=== PATIENT | female | born 1985 | race African-American/Black ===

== ENCOUNTER → 2023-05-23 13:04 | Outpatient (BNVA) | payer OTHER, SELFPAY | PROVIDERS: Visit Provider Physician Assistant Surgical ==

== ENCOUNTER 2023-06-12 13:21 | Outpatient (AMB) | payer OTHER, SELFPAY ==
--- OUTSIDE RECORDS SUMMARY | 2023-06-12 13:23 | XMS_ITS | Continuity of Care Document ---
Author Name Unknown Organization [facility] Address [address] [place] [address]- Care Team Providers Care Precision Jig Grinder Name Role Phone Romelia BENITEZ, Rebekah Kate Primary Care Physi nanda Encounter [facility] Date(s): 07/26/21 - 08/25/21 [facility] [address] [place], [place] [address] Attending Physician: Evelin Carter Admitting Physician: AdmtrEvelin Referring Physician: AdmtrEvelin Allergies, Adverse Reactions, Alerts Substance Reaction Severity Status penicillin C/O: a swelling Active Immunizations Given and Recorded Vaccine Date Status Refusal Reason Hepatitis A Adult Vaccine 1 02/15/10 Given 1Admin Note: hep A #1 Medications albuterol 90 mcg/inh inhalation powder 2 puffs, Inhalation, Every 4 hours, PRN as needed, prn for cough or wheezing, # 1 each, 1 Refills, Maintenance, 11/24/18 14:56:29 EST, Powder, 2 puffs Inhalation Every 4 hours,PRN:as needed,Instr:prnfor cough or wheezing Start Date: 11/24/18 Status: Ordered Problem List Condition Effective Dates Status Health Status Inform ant Morbid obesity with BMI of 4 0.0-44.9, adult(Confirmed) Active Preg., other complications NOS(Confirmed) Active Social History Social History Type Response Smoking Status Never smoker entered on: 09/16/16 Sex
--- OUTSIDE RECORDS SUMMARY | 2023-06-12 13:23 | XMS_ITS | Continuity of Care Document ---
Author Name Unknown Organization [facility] Address [address] [place] [address]- Care Team Providers Care Revenue Tax Specialist Name Role Phone Rebekah León CNM Primary Care Physi nanda Encounter [facility] [place] [place] Date(s): 07/26/21 - 08/02/21 [facility] [address] [place], [place] [address] Attending Physician: Valeria Dee MD Referring Physician: Rebekah León CNM Allergies, Adverse Reactions, Alerts Substance Reaction Severity [...]
--- OUTSIDE RECORDS SUMMARY | 2023-06-12 13:23 | XMS_ITS | Continuity of Care Document ---
Author Name Unknown Organization [facility] Address [address] [place] [address]- Care Team Providers Care Automatic Transmission Mechanic Name Role Phone Rebekah León CNM Primary Care Physi nanda Encounter [facility] [place] Date(s): 08/21/22 - 09/20/22 [facility] [address] [place], [place] [address] Attending Physician: Evelin Carter Admitting Physician: AdmEvelin renner Referring Physician: AdmtrEvelin Allergies, Adverse Reactions, Alerts [...] Date: 11/24/18 Status: Ordered Problem List Condition Confirmation Course Effective Dates Status H ealth Status Informant Morbid obesity with BMI of 40.0-44.9, adult Confirmed Active Preg., other complications NOS Confirmed Active Social History Social History Type Response Smoking Status Never smoker entered on: 09/16/16 Sex EKG study * Event Display: EKG Authored Date: Patient Care team information Care Team Personnel Name: Rebekah León CNM Position: S Insurance Marketing Rep Member Role: PCP Address: Address: [address] [place] [address] [place] [address]- Care Team Related Persons Name: MELINDA ALLENETTA Address: [address] [place] [address]
--- OUTSIDE RECORDS SUMMARY | 2023-06-12 13:23 | XMS_ITS | Continuity of Care Document ---
Author Name Unknown Organization [facility] Address [address] [place] [address]- Care Team Providers Care Nurse Plastics Name Role Phone Romelia BENITEZ, Rebekah Kate Primary Care Physi nanda Encounter [facility] [place] Date(s): 07/26/21 - 08/25/21 [facility] [address] [place], [place] [address] Attending Physician: Admtr, Evelin Admitting Physician: Admtr, Evelin Referring Physician: Admtr, Ar8 Allergies, Adverse Reactions, Alerts Substance Reaction Severity [...]
--- OUTSIDE RECORDS SUMMARY | 2023-06-12 13:23 | XMS_ITS | Continuity of Care Document ---
Author Name Unknown Organization [facility] Address [address] [place] [address]- Care Team Providers Care Box Machine Operator Name Role Phone Rebekah León CNM Primary Care Physi nanda Encounter [facility] [place] Date(s): 07/26/21 - 08/25/21 [facility] [address] [place], [place] [address] Attending Physician: Valeria Dee MD Referring [...]
--- NOTE | 2023-06-12 15:16 | A.OFFVIS_ITS ---
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 HPI Details Start time: 3.07pm, End time: 4.07pm I spent 55 minutes speaking with the patient on the phone plus an additional 5 minutes reviewing and updating records for a total of 60 minutes HPI Comments History of Present Illness Details Previous weight loss efforts: [employer], That works, calorie counting Wakes up: 6am, Sleeps: 10.30pm Breakfast: 8.30am (sausage,eggs) Lunch: 2pm (fast food, or leftovers) Dinner: 6pm (rice, potatoes, chicken, pork chops, corn) Snacks: 4pm (chips, candy bar) Exercise: walking Fluids: coffee (1 cup/day with cream and sugar), tea: none, soda: regular Sprite: 1/wk, juice: orange juice 1/day, ETOH: <1/month PFSH Medical History (Updated 06/12/23 @ 15:25 by Heladio Rajput MD) Asthma Depression Morbid obesity Surgical History (Updated 05/23/23 @ 13:15 by ESTUARDO Torres) Hx of tubal ligation Family History (Updated 05/23/23 @ 13:16 by ESTUARDO Torres) Mother Hypertension Fibromyalgia Rheumatoid arthritis Sleep apnea Father Epilepsy Sister Cancer Leukemia Son No problems noted. Son No problems noted. Social History (Updated 05/23/23 @ 13:14 by ESTUARDO Torres) Alcohol intake: current Alcohol intake frequency: holidays/special occasions only Patient Tobacco Use Status: Never used Tobacco Assessment & Plan Assessment & Plan (1) Morbid obesity: Code(s): E66.01 - Morbid (severe) obesity due to excess calories Plan: 1. Plan for lap sleeve gastrectomy. If diaphragmatic or ventral hernias are present at time of surgery, these will be repaired laparoscopically as well. Risks and complications were discussed in detail including possible conversion to an open procedure, anastomotic leak, bleeding requiring transfusion, small bowel obstruction, , DVT and pulmonary embolism, cardiac, or pulmonary complications, as stock car driver complications such as anastomotic ulcer, insufficient weight loss and vitamin deficiencies. I emphasized the importance of close follow-up, adherence to instructions and good communication. 2. Nutritional counseling. Start with 2 Isopure Infusions protein (buy at [employer], [employer]) shakes (HALF scoop in 8oz water each) at 7am-9am and 10am-12pm, 2 protein bars (Zone Perfect protein bars, buy at [employer], [employer], [employer], or [employer]) at 1pm-3pm and 4pm-6pm, dinner at 7pm (8 forks of protein and 8 forks of salad/vegetables) and HALF protein bar (if you feel hungry) at 9pm-10pm. Meal to include lean meat (beef, fish, pork, turkey, chicken), or sami yogurt, or egg whites, or beans with a salad with olive oil and fruits (berries, pears, apples, kiwi). Avoid salt, breads, potatoes, rice, pasta, desserts. 3. Each shake would be drunk slowly, like coffee in a period of 2 hours. 4. Cut each bar in 4 pieces and eat each piece in 30min to make each bar last 2 hours. 5. I emphasized the importance of measuring accurately the food portion and measure it when serving the food in plate 6. The meal portions include 8 full-size forks of meat and 8 full-size forks of salad. You always eat the meat portion but you can replace up to 4 forks for salad/vegetables with rice, potatoes or pasta, or a fruit if you like. The less you do it the better weight loss will be. 7. One full-size fork is what it can be scooped on the fork without falling aside and not what can be bit with the fork. Use regular forks like those you find in a typical restaurant. 8. Please send me weight measurements as soon as possible and then once a week. Always include your diet and exercise plan. Alternatively come weekly at the office for weight checks and send me the measurements. 9. Start walking outside daily, tracking calories with a goal of 300 calories per day, daily. Goal is to burn 2000 calories per week on active walking. Goal is to burn 2000 calories per week on exercise, which means either 300 calories daily, or 400 calories 5 days per week, or 500 calories 4 days per week, or 650 calories 3 days per week. 10. Alternatively purchase a stationary bike, elliptical or treadmill at home that can track calories. Let me know if you do so I can give you an exercise plan. 11. It is important of avoiding and for at least 18 months postoperatively and has been discussed at the infosession. 12. Goal is to lose at least 1.5-2lbs per week 13. Goal to lose 10% of your weight before surgery, which is about 24lbs. Ultimate weight goal: 219lbs before surgery 14. Please follow the diet plan exactly without any change. If you don't like something about the plan or you feel hungry you need to communicate with me so I can help you revise the plan. You should not change the plan yourself. (2) Depression: Code(s): F32.A - Depression, unspecified (3) Asthma: Code(s): J45.909 - Unspecified asthma, uncomplicated (4) Sleep apnea with use of continuous positive airway pressure (CPAP): Code(s): G47.30 - Sleep apnea, unspecified Orders: Orders Vitamin B12 and Folate Today E66.01 - Morbid (severe) obesity due to excess calories, F32.A - Depression, unspecified, G47.30 - Sleep apnea, unspecified, J45.909 - Unspecified asthma, uncomplicated Comprehensive Met. Panel Today E66.01 - Morbid (severe) obesity due to excess calories, F32.A - Depression, unspecified, G47.30 - Sleep apnea, unspecified, J45.909 - Unspecified asthma, uncomplicated C Reactive Protein Today E66.01 - Morbid (severe) obesity due to excess calories, F32.A - Depression, unspecified, G47.30 - Sleep apnea, unspecified, J45.909 - Unspecified asthma, uncomplicated Ferritin Today E66.01 - Morbid (severe) obesity due to excess calories, F32.A - Depression, unspecified, G47.30 - Sleep apnea, unspecified, J45.909 - Unspecified asthma, uncomplicated Hemoglobin A1c Today E66.01 - Morbid (severe) obesity due to excess calories, F32.A - Depression, unspecified, G47.30 - Sleep apnea, unspecified, J45.909 - Unspecified asthma, uncomplicated Insulin Today E66.01 - Morbid (severe) obesity due to excess calories, F32.A - Depression, unspecified, G47.30 - Sleep apnea, unspecified, J45.909 - Unspecified asthma, uncomplicated IRON PROFILE Today E66.01 - Morbid (severe) obesity due to excess calories, F32.A - Depression, unspecified, G47.30 - Sleep apnea, unspecified, J45.909 - Unspecified asthma, uncomplicated Lipid Panel Today E66.01 - Morbid (severe) obesity due to excess calories, F32.A - Depression, unspecified, G47.30 - Sleep apnea, unspecified, J45.909 - Unspecified asthma, uncomplicated PTHI Today E66.01 - Morbid (severe) obesity due to excess calories, F32.A - Depression, unspecified, G47.30 - Sleep apnea, unspecified, J45.909 - Unspecified asthma, uncomplicated TSH reflex Free T4 Today E66.01 - Morbid (severe) obesity due to excess calories, F32.A - Depression, unspecified, G47.30 - Sleep apnea, unspecified, J45.909 - Unspecified asthma, uncomplicated Vitamin A Today E66.01 - Morbid (severe) obesity due to excess calories, F32.A - Depression, unspecified, G47.30 - Sleep apnea, unspecified, J45.909 - Unspecified asthma, uncomplicated Vitamin B1 Today E66.01 - Morbid (severe) obesity due to excess calories, F32.A - Depression, unspecified, G47.30 - Sleep apnea, unspecified, J45.909 - Unspecified asthma, uncomplicated Vitamin D 25-OH Total Today E66.01 - Morbid (severe) obesity due to excess calories, F32.A - Depression, unspecified, G47.30 - Sleep apnea, unspecified, J45.909 - Unspecified asthma, uncomplicated Zinc Today E66.01 - Morbid (severe) obesity due to excess calories, F32.A - Depression, unspecified, G47.30 - Sleep apnea, unspecified, J45.909 - Uns pecified asthma, uncomplicated ECG 12 lead EKG Today E66.01 - Morbid (severe) obesity due to excess calories, F32.A - Depression, unspecified, G47.30 - Sleep apnea, unspecified, J45.909 - Unspecified asthma, uncomplicated FL upper GI w air Today E66.01 - Morbid (severe) obesity due to excess calories, F32.A - Depression, unspecified, G47.30 - Sleep apnea, unspecified, J45.909 - Unspecified asthma, uncomplicated Complete Blood Count Auto Diff Today E66.01 - Morbid (severe) obesity due to excess calories, F32.A - Depression, unspecified, G47.30 - Sleep apnea, unspecified, J45.909 - Unspecified asthma, uncomplicated H Pylori Breath Test Today E66.01 - Morbid (severe) obesity due to excess calories, F32.A - Depression, unspecified, G47.30 - Sleep apnea, unspecified, J45.909 - Unspecified asthma, uncomplicated US abdomen comp w elastography Today E66.01 - Morbid (severe) obesity due to excess calories, F32.A - Depression, unspecified, G47.30 - Sleep apnea, unspecified, J45.909 - Unspecified asthma, uncomplicated XR chest 2V Today E66.01 - Morbid (severe) obesity due to excess calories, F32.A - Depression, unspecified, G47.30 - Sleep apnea, unspecified, J45.909 - Unspecified asthma, uncomplicated Referrals Behavioral Health Referral E66.01 - Morbid (severe) obesity due to excess calories, F32.A - Depression, unspecified, G47.30 - Sleep apnea, unspecified, J45.909 - Unspecified asthma, uncomplicated Nutrition/Dietitian Referral E66.01 - Morbid (severe) obesity due to excess calories, F32.A - Depression, unspecified, G47.30 - Sleep apnea, unspecified, J45.909 - Unspecified asthma, uncomplicated Telehealth Telehealth Location of provider rendering services: practice address Location of patient: address on file Patient Identification confirmed using: Name, : Yes Telehealth method: voice only Patient verbally consented to treatment: Yes Patient verbally consented to billing insurance company: Yes Patient informed of any privacy concerns related to visit: Yes Minutes spent on Phone/Video with Pt.: 60 Coding Level of Care Code Tele New Pt Level 5 (76698) Diagnoses Morbid obesity E66.01 Depression F32.A Asthma J45.909 Sleep apnea with use of continuous positive airway pressure (CPAP) G47.30 Time Spent (min) 60
[2023-06-12 15:28] VITALS: BMI 44.4
== END 2023-06-12 16:06 | disposition home or self-care (01) ==
LOC: HO.HBS 13:21
PROVIDERS: Visit Provider Surgery
DX: E66.01 Morbid (severe) obesity due to excess calories (principal); Z68.42 Body mass index [BMI] 45.0-49.9, adult
CPT/HCPCS: 99205

== ENCOUNTER → 2023-06-12 13:21 | Outpatient (BNVA) | payer OTHER, SELFPAY | PROVIDERS: Visit Provider Surgery ==

== ENCOUNTER 2023-06-23 08:55 | Outpatient (REF) | payer OTHER, SELFPAY ==
--- NOTE | ~2023-06-23 | XR_ITS ---
EXAMINATION: XR CHEST CLINICAL INFORMATION: Morbid severe obesity due to excess calories COMPARISON: None available. TECHNIQUE: 2 views of the chest were obtained. FINDINGS: Lung volumes are low, limiting evaluation of the lungs and cardiomediastinal silhouette. Cardiac size within normal limits allowing for low lung volumes. No pleural effusion. No focal consolidation to suggest pneumonia. XR/XR chest 2V IMPRESSION: Low lung volumes. No evidence of pneumonia.
[2023-06-23 10:06] LABS: MANUAL DIFF FLAG NO
[2023-06-23 10:15] LABS: Basophils Absolute Auto 0.1 X10*3/uL (0.0-0.2); Basophils Percent Auto 0.8 % (0-2); Eosinophils Absolute Auto 0.1 X10*3/uL (0.0-0.4); Eosinophils Percent Auto 1.3 % (0-4); Hematocrit 39.7 % (37.0-47.0); Hemoglobin 12.8 g/dl (12.0-16.0); Imm Gran Abs Auto 0.02 X10*3/uL (0.00-0.03); Imm Gran Pct Auto 0.3 % (0.0-0.4); Lymphocytes Absolute Auto 3.6 X10*3/uL (1.2-4.9); Lymphocytes Percent Auto 47.4 % (20-40); Mean Corpuscular HGB Conc 32.2 g/dl (31.0-35.0); Mean Corpuscular Hemoglobin 25.9 pg (27.0-33.0); Mean Corpuscular Volume 80.2 fL (80.0-98.0); Mean Platelet Volume 10.1 fL (9.4-12.3); Monocytes Absolute Auto 0.4 X10*3/uL (0.1-1.2); Monocytes Percent Auto 5.2 % (2-11); Neutrophils Absolute Auto 3.4 x10*3/uL (2.0-8.3); Platelet Count 397 X10*3/uL (160-400); Red Blood Count 4.95 X10*6/uL (4.20-5.50); Red Cell Distribution Width 14.8 % (11.0-16.0); White Blood Count 7.5 X10*3/uL (4.8-10.8)
[2023-06-23 10:49] LABS: Alanine Aminotransferase 17 U/L (0-31); Albumin Level 4.3 g/dL (3.5-5.0); Alkaline Phosphatase 47 U/L (39-117); Anion Gap 12 (12-20); Aspartate Amino Transferase 16 U/L (5-31); Bilirubin Total 0.6 mg/dL (0.0-1.0); Blood Urea Nitrogen 10 mg/dL (9-16); Calcium 9.4 mg/dL (8.4-10.2); Carbon Dioxide 25 mmol/L (22-29); Chloride 106 mmol/L (96-108); Cholesterol 192 mg/dL (<200); Estimated Glomerular Filt Rate > 60; Glucose Random 126 mg/dL (60-115); HDL Cholesterol 41 mg/dL (>40); Iron 50 mcg/dL (30-160); LDL Cholesterol Calculated 128 mg/dL (<100); Percent Iron Saturation 17 % (15-50); Potassium 3.9 mmol/L (3.3-5.1); Sodium 139 mmol/L (135-145); Total Iron Binding Capacity 293 mcg/dL (228-428); Total Protein 7.6 g/dL (6.5-8.0); Triglycerides 118 mg/dL (<150); Unsaturated Iron Binding 243 ug/dL
[2023-06-23 10:50] LABS: Estimated Average Glucose 131 mg/dL; Hemoglobin A1C 150.8074 umol/L; Hemoglobin A1c % 6.2 % (<6.0)
[2023-06-23 11:04] LABS: Ferritin 79 ng/mL (10-122); Insulin 24 uU/mL (2-29); TSH reflex Free T4 1.21 uIU/mL (0.32-4.0); Vitamin D 25-OH Total 19.9 ng/mL (>30)
[2023-06-23 11:16] LABS: Folate 6.5 ng/mL (> or = 4.0); Vitamin B12 414 pg/mL (200-900)
[2023-06-24 14:13] LABS: Calcium (PTHI) 9.3 mg/dL (8.6-10.2); PTHI 87 pg/mL (16-77)
[2023-06-26 12:54] LABS: Zinc 75 mcg/dL (60-130)
[2023-06-26 14:36] LABS: H Pylori Breath Test Negative (Negative)
[2023-06-27 02:44] LABS: Vitamin A 41 mcg/dL (38-98)
[2023-06-27 13:17] LABS: Vitamin B1 <6 nmol/L (8-30)
== END 2023-06-23 08:56 | disposition home or self-care (01) ==
LOC: HO.LAB 08:55
PROVIDERS: PCP Internal Medicine; Visit Provider Surgery
DX: E66.01 Morbid (severe) obesity due to excess calories (principal); F32.A Depression, unspecified; J45.909 Unspecified asthma, uncomplicated; G47.30 Sleep apnea, unspecified
CPT/HCPCS: 36415; 71046; 80053; 80061; 82306; 82607; 82728; 82746; 83013; 83036; 83525; 83540; 83970; 84425; 84443; 84590; 84630; 85025; 86140

== ENCOUNTER 2023-08-15 07:39 | Outpatient (AMB) | payer OTHER, SELFPAY ==
--- NOTE | 2023-08-15 08:23 | A.OFFVIS_ITS ---
Intake VS Expanded 08/15/23 08:27 Height 5 ft 2 in Weight 240 lb 8 oz BMI 44.0 Body Fat % 58.6 Body Fat Mass 141.1 Fat Free Mass 99.6 Visceral Fat Rating 24 Body Water % 28.4 Body Water Mass 68.3 Basal Metabolic Rate/Score 1,352 Intake Visit Reasons: TV Follow Up SWL Allergies Penicillins Allergy (Mild, Verified 06/12/23 15:16) Hives HPI TV Follow Up SWL HPI Details Start time: 8.00am, End time: 8.32am ?I spent 27 minutes speaking with the patient on the phone plus an additional 5 minutes reviewing and updating records for a total of 32 minutes HPI Comments History of Present Illness Details Has purchased a stair stepper and has acquired the appropriate protein shakes and bars and she is ready to begin the nutritional and exercise plan I gave her. [facility] Medical History (Updated 08/12/23 @ 16:41 by Heladio Rajput MD) Asthma Depression Morbid obesity Surgical History (Updated 05/23/23 @ 13:15 by ESTUARDO Torres) Hx of tubal ligation Family History (Updated 05/23/23 @ 13:16 by ESTUARDO Torres) Mother Hypertension Fibromyalgia Rheumatoid arthritis Sleep apnea Father Epilepsy Sister Cancer Leukemia Son No problems noted. Son No problems noted. Social History (Updated 05/23/23 @ 13:14 by ESTUARDO Torres) Alcohol intake: current Alcohol intake frequency: holidays/special occasions only Patient Tobacco Use Status: Never used Tobacco Assessment & Plan Assessment & Plan (1) Morbid obesity: Code(s): E66.01 - Morbid (severe) obesity due to excess calories Plan: 1. Plan for lap sleeve gastrectomy. If diaphragmatic or ventral hernias are present at time of surgery, these will be repaired laparoscopically as well. Risks and complications were discussed in detail including possible conversion to an open procedure, anastomotic leak, bleeding requiring transfusion, small bowel obstruction, , DVT and pulmonary embolism, cardiac, or pulmonary complications, as buttermaker continuous churn complications such as anastomotic ulcer, insufficient weight loss and vitamin deficiencies. I emphasized the importance of close follow-up, adherence to instructions and good communication. 2. Nutritional counseling. Start with 2 Isopure Infusions protein (buy at [employer]) shakes (HALF scoop in 8oz water each) at 7am-9am and 10am-12pm, 2 protein bars (Zone Perfect protein bars, buy at [employer], [employer], [employer], or [employer]) at 1pm-3pm and 4pm-6pm, dinner at 7pm (8 forks of protein and 8 forks of salad/vegetables) and HALF protein bar (if you feel hungry) at 9pm-10pm. Meal to include lean meat (beef, fish, pork, turkey, chicken), or swiss yogurt, or egg whites, or beans with a salad with olive oil and fruits (berries, pears, apples, kiwi). Avoid salt, breads, potatoes, rice, pasta, desserts. 3. Each shake would be drunk slowly, like coffee in a period of 2 hours. 4. Cut each bar in 4 pieces and eat each piece in 30min to make each bar last 2 hours. 5. I emphasized the importance of measuring accurately the food portion and measure it when serving the food in plate 6. The meal portions include 8 full-size forks of meat and 8 full-size forks of salad. You always eat the meat portion but you can replace up to 4 forks for salad/vegetables with rice, potatoes or pasta, or a fruit if you like. The less you do it the better weight loss will be. 7. One full-size fork is what it can be scooped on the fork without falling aside and not what can be bit with the fork. Use regular forks like those you find in a typical restaurant. 8. Please send me weight measurements as soon as possible and then once a week. Always include your diet and exercise plan. Alternatively come weekly at the office for weight checks and send me the measurements. 9. Start the stair stepper doing 300 calories per day daily. You can do all of them together or split them to two sessions of 150 calories each. Goal is to burn 2000 calories per week on the stair stepper. 10. It is important of avoiding and for at least 18 months postoperatively and has been discussed at the infosession. 11. Goal is to lose at least 1.5-2lbs per week 12. Goal to lose 10% of your weight before surgery, which is about 24lbs. Ultimate weight goal: 219lbs before surgery 13. Please follow the diet plan exactly without any change. If you don't like something about the plan or you feel hungry you need to communicate with me so I can help you revise the plan. You should not change the plan yourself. (2) Asthma: Code(s): J45.909 - Unspecified asthma, uncomplicated (3) Sleep apnea with use of continuous positive airway pressure (CPAP): Code(s): G47.30 - Sleep apnea, unspecified Telehealth Telehealth Location of provider rendering services: practice address Location of patient: address on file Patient Identification confirmed using: Name, : Yes Telehealth method: voice only Patient verbally consented to treatment: Yes Patient verbally consented to billing insurance company: Yes Patient informed of any privacy concerns related to visit: Yes Minutes spent on Phone/Video with Pt.: 32 Coding Level of Care Code Tele Est Pt Level 4 (62288) Diagnoses Morbid obesity E66.01 Asthma J45.909 Sleep apnea with use of continuous positive airway pressure (CPAP) G47.30 Time Spent (min) 32
[2023-08-15 08:27] VITALS: BMI 44.0
== END 2023-08-15 08:33 | disposition home or self-care (01) ==
LOC: HO.HBS 07:39
PROVIDERS: PCP Internal Medicine; Visit Provider Surgery
DX: E66.01 Morbid (severe) obesity due to excess calories (principal); Z68.41 Body mass index [BMI] 40.0-44.9, adult; G47.30 Sleep apnea, unspecified
CPT/HCPCS: 99214

== ENCOUNTER → 2023-08-15 07:39 | Outpatient (BNVA) | payer OTHER, SELFPAY | PROVIDERS: PCP Internal Medicine; Visit Provider Surgery ==

== ENCOUNTER → 2023-09-05 08:19 | Outpatient (BNVA) | payer OTHER, SELFPAY | PROVIDERS: PCP Internal Medicine; Visit Provider Dietitian, Registered | DX: E66.01 Morbid (severe) obesity due to excess calories (principal); Z71.3 Dietary counseling and surveillance | CPT/HCPCS: 97802 ==

== ENCOUNTER → 2023-09-05 13:18 | Outpatient (REF) | payer OTHER, SELFPAY ==
--- NOTE | 2023-09-05 13:21 | ECG_ITS ---
Test Reason : e66.01 Blood Pressure : / mmHG Vent. Rate : 073 BPM Atrial Rate : 073 BPM P-R Int : 140 ms QRS Dur : 080 ms QT Int : 380 ms P-R-T Axes : 056 007 012 degrees QTc Int : 418 ms Normal sinus rhythm Normal ECG No previous ECGs available Referred By: Heladio Rajput Electronically Signed By:JOHN MANCIA MD
== END ==
LOC: HO.CARD 13:18
PROVIDERS: PCP Internal Medicine; Visit Provider Surgery
DX: E66.01 Morbid (severe) obesity due to excess calories (principal); F32.A Depression, unspecified; J45.909 Unspecified asthma, uncomplicated; G47.30 Sleep apnea, unspecified
CPT/HCPCS: 93005

== ENCOUNTER 2023-09-08 07:54 | Outpatient (AMB) | payer OTHER, SELFPAY ==
--- NOTE | 2023-09-08 08:06 | A.OFFVIS_ITS ---
Intake VS Expanded 09/08/23 08:12 Height 5 ft 2 in Weight 234 lb 6 oz BMI 42.9 Body Fat % 56.8 Body Fat Mass 133.2 Fat Free Mass 101.4 Visceral Fat Rating 24 Body Water % 29.6 Body Water Mass 69.4 Basal Metabolic Rate/Score 1,363 Intake Visit Reasons: TV Follow Up SWL Allergies Penicillins Allergy (Mild, Verified 06/12/23 15:16) Hives HPI TV Follow Up SWL HPI Details Start time: 8.00am, End time: 8.20am ?I spent 15 minutes speaking with the patient on the phone plus an additional 5 minutes reviewing and updating records for a total of 20 minutes HPI Comments History of Present Illness Details Overall weight loss: 8.4lbs, 3.46% TBWL Is doing 2 Isopure Infusions protein shakes (1/2 scoop in water), 2 Zone Perfect protein bars and one meal (8 forks of protein and 8 forks of salad or vegetables) Exercise: is doing stair stepper for 300 calories daily PFSH Medical History (Updated 08/12/23 @ 16:41 by Heladio Rajput MD) Asthma Depression Morbid obesity Surgical History (Updated 05/23/23 @ 13:15 by ESTUARDO Torres) Hx of tubal ligation Family History (Updated 05/23/23 @ 13:16 by ESTUARDO Torres) Mother Hypertension Fibromyalgia Rheumatoid arthritis Sleep apnea Father Epilepsy Sister Cancer Leukemia Son No problems noted. Son No problems noted. Social History (Updated 05/23/23 @ 13:14 by ESTUARDO Torres) Alcohol intake: current Alcohol intake frequency: holidays/special occasions only Patient Tobacco Use Status: Never used Tobacco Assessment & Plan Assessment & Plan (1) Morbid obesity: Code(s): E66.01 - Morbid (severe) obesity due to excess calories Plan: 1. Plan for lap sleeve gastrectomy including upper GI endoscopy. All tests has been completed and reviewed and the patient is cleared for the surgery. ?If diaphragmatic or ventral hernias are present at time of surgery, these will be repaired laparoscopically as well. Risks and complications were discussed in detail including possible conversion to an open procedure, anastomotic leak, bleeding requiring transfusion, small bowel obstruction, , DVT and pulmonary embolism, cardiac, or pulmonary complications, as superintendent container terminal complications such as anastomotic ulcer, insufficient weight loss and vitamin deficiencies. I emphasized the importance of close follow-up, adherence to instructions and good communication. So far she has proven to be an excellent communicator and very compliant with all our directions accomplishing a great weight loss. I believe that she is an excellent candidate and she is ready. 2. Continue same nutritional plan for 2 Isopure Infusions protein shakes (1/2 scoop in water), 2 Zone Perfect protein bars and one meal (8 forks of protein and 8 forks of salad or vegetables) 3. Continue stair stepper for 300 calories daily 4. Continue to send measurements weekly on Tuesdays Telehealth Telehealth Location of provider rendering services: practice address Location of patient: address on file Patient Identification confirmed using: Name, : Yes Telehealth method: voice only Patient verbally consented to treatment: Yes Patient verbally consented to billing insurance company: Yes Patient informed of any privacy concerns related to visit: Yes Minutes spent on Phone/Video with Pt.: 20 Coding Level of Care Code Tele Est Pt Level 3 (84336) Diagnoses Morbid obesity E66.01 Time Spent (min) 20
[2023-09-08 08:12] VITALS: BMI 42.9
== END 2023-09-08 08:18 | disposition home or self-care (01) ==
LOC: HO.HBS 07:54
PROVIDERS: PCP Internal Medicine; Visit Provider Surgery
DX: E66.01 Morbid (severe) obesity due to excess calories (principal)
CPT/HCPCS: 99213

== ENCOUNTER → 2023-09-08 07:54 | Outpatient (BNVA) | payer OTHER, SELFPAY | PROVIDERS: PCP Internal Medicine; Visit Provider Surgery ==

== ENCOUNTER 2023-09-17 08:21 | Outpatient (AMB) | payer OTHER, SELFPAY ==
--- NOTE | 2023-09-17 08:12 | MHC.WMTHER ---
Intake Intake Visit Reasons: VIDEO BH Intake Allergies Penicillins Allergy (Mild, Verified 06/12/23 15:16) Hives [facility] Medical History (Updated 08/12/23 @ 16:41 by Heladio Rajput MD) Asthma Depression Morbid obesity Surgical History (Updated 05/23/23 @ 13:15 by ESTUARDO Torres) Hx of tubal ligation Family History (Updated 05/23/23 @ 13:16 by ESTUARDO Torres) Mother Hypertension Fibromyalgia Rheumatoid arthritis Sleep apnea Father Epilepsy Sister Cancer Leukemia Son No problems noted. Son No problems noted. Social History (Updated 05/23/23 @ 13:14 by ESTUARDO Torres) Alcohol intake: current Alcohol intake frequency: holidays/special occasions only Patient Tobacco Use Status: Never used Tobacco Behavioral Health Assessment Weight Management Therapy Therapy Notes Details Pt is a 38 years old female, who presents for initial behavioral health assessment as part of surgical weight-loss program. PT reported been in counseling before as she was adjusting to life after divorce and to navigate parenting, however she is not currently in counseling. She denied any past/recent hospitalization/crisis for behavioral health. Denies any safety concerns around SI and/or self-other harm, also there is no history of substance use reported. There is also no evidence for current stress/emotional-eating, and scores from BES suggest minimal risk for binge eating behavior. PHQ- scores also showed no active symptoms/concerns with depression. Mental status exam is withing normal limits, suggesting person's functioning is not impaired. At this time patient is cleared from the behavioral health standpoint. Presenting Concerns Referral Source WMP Provider. PT sees Dr. Pagan Reason for referral Completion of behavioral health assessment as part of process for weight-loss surgery. Precipitating Event Obesity and medical issues. Living Situation Current Living Situation Rent At risk of losing current housing? No Satisfied with current living situation? Yes Comments PT lives with her 2 sons (16 and 12). Food/Weight/Diet Expectations of change PT wants to be healthy, being more active and coming out of the CPAP machine. Initial goal to lose 10% of her weight before surgery, which is about 24lbs. Ultimate weight goal: 219lbs before surgery. History/Relationship with food Dealt with stress-eating when went trough separation, but is not engaging on emotional eating anymore. She uses distracting activities to manage cravings. Before starting program B: Neil or a homemade breakfast sandwich /wrap with eggs, sauce, cheese. L: Eating out depending on what was on the area. Chicken/rice from a or [employer] restaurant, or a chalupa from [employer]. D: Cooking at home but sometimes eating out. Example: chicken/rice or pasta. History/Relationship with weight Struggles started after having second son 12 years ago. Before getting with 2nd son she was around 180Lbs. In the past 10 years lowest weight has been 195-200Lbs, and highest 245Lbs couple months ago. History/Relationship with dieting Herbalife for about a year and lost 15Lbs reports it was a struggle to keep it down. [employer] (vitamins/supplements), caloric deficit, intermittent fasting, monitoring what she eats. Social History Family history and relationship PT is . She has 2 boys. Parents are alive, only sister is . PPT reports a strong relationship with parents. 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 Developmental history and status None reported. Currently WNL. Social support Parents and best friend who had surgery. Community support PCP. 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 Cultural/Ethnic information [place]. Legal Involvement and History Current or historical involvement with the legal system? None reported. Education Highest grade completed Masters degree in criminal justice. Preferred learning style Learn by doing Currently enrolled in educational program? No Interested in further educational program? No Educational Interests/Skills Social work. 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 ) Wants help to find employment? No Meaningful activities Shopping, decoration, eating out, trips/vacation. Financial Situation Describe current financial situation Comfortable Financial assistance? None Service Service? No Mental Health and Addiction Treatment Current/Past substance abuse? No Current/Past addictive behavior concerns? No Psychiatric history -Started therapy in 2020 due to challenges after divorce and adjustment to being a single parent. But has been out of therapy for couple months as she's doing well. - She had a panic attack last August and got prescribed with something for panics but she doesn't take it as no more panic attacks have happened. Never hospitalized for mental health, denies ever been in MH crisis, Denies any hx or recent safety concern around SI/SA and self/other-harm. Medical and Physical Health Summary Additional Medical History not covered in history None reported Sexual History concerns None reported. Physical exam in the last year? Yes Pain Screening Current pain? No Pain in the last few months? No Medications Is the patient compliant with medications? Yes Does the patient have Farias Guardian in place? Not applicable Does the patient use complimentary health approaches? No Trauma/Abuse History History of trauma? No Questionnaires PHQ-9 Over the last 2 weeks, how often have you been bothered by any of the following problems? 1. Little interest or pleasure in doing things: not at all 2. Feeling down, depressed, or hopeless: not at all 3. Trouble falling or staying asleep, or sleeping too much: several days (Because of the time change. ) 4. Feeling tired or having little energy: not at all 5. Poor appetite or overeating: not at all 6. Feeling bad about yourself - or that you are a failure or have let yourself or your family down: not at all 7. Trouble concentrating on things, such as reading the newspaper or watching television: not at all 8. Moving or speaking so slowly that other people could have noticed. Or the opposite - being so fidgety or restless that you have been moving around a lot more than usual: not at all 9. Thoughts that you would be better off or of hurting yourself in some way: not at all Total score: 1 Depression Screening Interpretation: Negative Depression Screening Done: Yes 33971 - PHQ-9 Billing: Yes Source: Developed by Drs. Lincoln Solis, Nely Herrera, Rommel Sandoval and colleagues, with an educational karlo from [employer]. Binge Eating Scale Group 1 A. I don't feel self-conscious about my wt. or body size when I'm with others. B. I feel concerned about how I look to others, but it normally does not make me fell disappointed with myself C. I do get self-conscious about my appearance and wt. which makes me feel disappointed in myself. D. I feel very self-conscious about my wt. and frequently I feel intense shame and disgust for myself. I try to avoid social contacts because of my self-consciousness. Response Group 1: B Group 2 A. I don't have any difficulty eating slowly in the proper manner. B. Although I seem to gobble down foods, I don't end up feeling stuffed because of eating to much. C. At times, I tend to eat quickly and then, I feel uncomfortably full afterwards. D. I have the habit of bolting down my food, without really chewing it. When this happens I usually feel uncomfortably stuffed because I've eaten to much. Response Group 2: A Group 3 A. I feel capable to control my eating urges when I want to. B. I feel like I have failed to control my eating more than the average person. C. I feel utterly helpless when it comes to feeling in control of my eating urges. D. Because I feel so helpless about controlling my eating I have become very desperate about trying to get control. Response Group 3: B Group 4 A. I don't have the habit of eating when I'm bored. B. I sometimes eat when I'm bored, but often I'm able to get busy and get my mind off food. C. I have a regular habit of eating when I'm bored, but occasionally, I can use some other activity to get my mind off eating. D. I have a strong habit of eating when I'm bored. Nothing seems to help me breath the habit. Response Group 4: C Group 5 A. I'm usually physically hungry when I eat something. B. Occasionally, I eat something on impulse even though I really am not hungry. C. I have the regular habit of eating foods, that I might not really enjoy, to satisfy a hungry feeling even though physically, I don't need the food. D. Although I'm not physically hungry, I get a hungry feeling in my mouth that only seems to be satisfied when I eat a food, like sandwich, that fills my mouth. Sometimes, when I eat the food to satisfy my mouth hunger, I then spit the food out so I won't gain weight. Response Group 5: A Group 6 A. I don't feel any guilt or self-hate after I overeat. B. After I overeat, occasionally I feel guilt or self-hate. C. Almost all the time I experience strong guilt or self-hate after I overeat. Response Group 6: B Group 7 A. I don't lose total control of my eating when dieting even after periods when I overeat. B. Sometimes when I eat a forbidden food on a diet, I feel like I blew it and eat even more. C. Frequently, I have the habit of saying to myself, I've blown it now, why not go all the way, when I overeat on a diet. When that happens I eat more. D. I have a regular habit of starting a strict diets for myself but I break the diets by going on an eating binge. My life seems to be either a feast or famine. Response Group 7: A Group 8 A. I rarely eat so much food that I feel uncomfortably stuffed afterwards. B. Usually about once a month, I each such a quantity of food, I end up feeling very stuffed. C. I have regular periods during the month when I eat large amounts of food, either at mealtime or at snacks. D. I eat so much food that I regularly feel quite uncomfortable after eating and sometimes a bit nauseous. Response Group 8: B Group 9 A. My level of calorie intake does not go up very high or go down very low on a regular basis. B. Sometimes after I overeat, I will try to reduce my caloric intake to almost nothing to compensate for the excess calories I've eaten. C. I have a regular habit of overeating during the night. It seems that my routine is not to be hungry in the morning but overeat in the evening. D. In my adult years, I have had week-long periods where I practically starve myself. This follows periods when I overeat. It seems I live a life of either feast or famine. Response Group 9: A Group 10 A. I usually am able to stop eating when I want to. I know when enough is enough. B. Every so often, I experience a compulsion to eat which I can't seem to control. C. Frequently, I experience strong urges to eat which I seem unable to control, but at other times I can control my eating urges. D. I feel incapable of controlling urges to eat. I have a fear of not being able to stop eating voluntarily. Response Group 10: A Group 11 A. I don't have any problem stopping eating when I feel full. B. I usually can stop eating when I feel full but occasionally overeat leaving me feeling uncomfortably stuffed. C. I have a problem stopping eating once I start and usually I feel uncomfortably stuffed after I eat a meal. D. Because I have a problem not being able to stop eating when I want, I sometimes have to induce vomiting to relieve my stuffed feeling. Response Group 11: A Group 12 A. I seem to eat just as much when I'm with others, Family social gatherings as when I'm by myself. B. Sometimes, when I'm with other persons, I don't eat as much as I want to eat because I'm self-conscious about my eating. C. Frequently, I eat only a small amount of food when others are present, because I'm very embarrassed about my eating. D. I feel so ashamed about overeating that I pick times to overeat when I know no one will see me. I feel like a closet eater. Response Group 12: A Group 13 A. I eat three meals a day with only an occasional between meal snack. B. I eat 3 meals a day, but I also normally snack between meals. C. When I am snacking heavily, I get in the habit of skipping regular meals. D. There are regular periods when I seem to be continually eating, with no planned meals. Response Group 13: A Group 14 A. I don't think much about trying to control unwanted eating urges. B. At least some of the time, I feel my thoughts are pre-occupied with trying to control my eating urges. C. I feel that frequently I spend much time thinking about how much I ate or about trying not to eat anymore. D. It seems to me that most of my waking hours are pre-occupied by thoughts about eating or not eating. I feel like I'm constantly struggling not to eat. Response Group 14: A Group 15 A. I don't think about food a great deal. B. I have strong craving for food but they last only for brief periods of time. C. I have days when I can't seem to think about anything else but food. D. Most of my days seem to be pre-occupied with thoughts about food. I feel like I live to eat. Response Group 15: A Group 16 A. I usually know whether or not I'm physically hungry. I take the right portion of food to satisfy me. B. Occasionally, I feel uncertain about knowing whether or not I'm physically hungry. A these times it's hard to know how much food I should take to satisfy me. C. Even though I might know how many calories I should eat, I don't have any idea what is a normal amount of food for me. Response Group 16: A Binge Eating Score: 6 Score less than 17 Minimal Risk Score between 18-26 Moderate Risk Score between 27-46 High Risk Assessment & Plan Assessment & Plan (1) Adjustment disorder: Code(s): F43.20 - Adjustment disorder, unspecified Qualifiers: Adjustment disorder type: unspecified type Qualified Code(s): F43.20 - Adjustment disorder, unspecified Plan: After completing the assessment and comparing scores from Binge eating scale and PHQ9, at this time, this lead technical writer has no concerns about patient's mental status. Client is cleared and there is no need for follow up. Clinician has advised client about available resources if ever in need to access additional support and has encourage client to participate in post-op groups, workshops and facebook support group. Telehealth Telehealth Location of provider rendering services: other Location of patient: address on file Patient Identification confirmed using: Name, : Yes Telehealth method: video Patient verbally consented to treatment: Yes Patient verbally consented to billing insurance company: Yes Patient informed of any privacy concerns related to visit: No Minutes spent on Phone/Video with Pt.: 50 Coding Level of Care Code New Pt Tele Psy Diag Luca ([id number]) Patient Type New Diagnoses Adjustment disorder, unspecified type F43.20 Adjustment disorder type: unspecified type Time Spent (min) 50
== END 2023-09-17 08:54 | disposition home or self-care (01) ==
LOC: HO.HBST 08:21
PROVIDERS: PCP Internal Medicine; Visit Provider Counselor Mental Health
DX: F43.20 Adjustment disorder, unspecified (principal)
CPT/HCPCS: 90791

== ENCOUNTER → 2023-09-17 08:21 | Outpatient (BNVA) | payer OTHER, SELFPAY | PROVIDERS: PCP Internal Medicine; Visit Provider Counselor Mental Health ==

== ENCOUNTER 2023-10-01 07:56 | Outpatient (REF) | payer OTHER, SELFPAY ==
--- NOTE | ~2023-10-01 | US_ITS ---
EXAMINATION: US COMPLETE ABDOMEN WITH LIVER ELASTOGRAPHY CLINICAL INFORMATION: Morbid obesity. COMPARISON: None available. TECHNIQUE: Real-time imaging of the abdominal viscera. Noninvasive ultrasound liver fibrosis assessment is performed using Ember ElastPQ point quantification shear wave elastography (2D-SWE) with a C5-2 MHz transducer. Multiple elastography samples are obtained. FINDINGS: PANCREAS: Normal. The visualized pancreatic head and body are normal in appearance. The remainder of the pancreas is obscured from visualization by the overlying bowel gas. ABDOMINAL AORTA: The proximal and distal aortic segments are normal in caliber. The mid segment is obscured by overlapping bowel gas. INFERIOR VENA CAVA: Visualized portions are normal. LIVER: The liver demonstrates normal size, contour and and grayscale echogenicity. No focal lesion or intrahepatic biliary duct dilatation. The right lobe measures 15.6 cm in length. The left lobe measures 11.1 cm in length. Portal flow is towards the liver (hepatopetal). Shear wave liver elastography median stiffness is 1.19 m/s (reference: normal median stiffness is 1.3 m/s or less). IQR/median stiffness to assess sampling precision is 0.07 (reference: good quality data set is IQR/median stiffness of 0.15 or less). GALLBLADDER: Normal. The gallbladder is physiologically distended without evidence of stones, sludge, polyps, wall thickening or pericholecystic fluid. COMMON BILE DUCT: Normal in caliber measuring 0.9 cm in diameter. RIGHT KIDNEY: Normal. No hydronephrosis. No renal calculi or focal parenchymal lesions. The kidney measures 12.1 cm in maximum dimension. LEFT KIDNEY: Normal. No hydronephrosis. No renal calculi or focal parenchymal lesions. The kidney measures 11.6 cm in maximum dimension. SPLEEN: Normal. The spleen measures 10.0 cm in maximum dimension. FREE FLUID: None. US/US abdomen comp w elastography IMPRESSION: 1. There is generalized increase in hepatic echotexture, consistent with fatty infiltration or hepatocellular disease. Please correlate clinically. No focal hepatic mass or intrahepatic biliary dilatation is seen. 2. Liver elastography: Measurements are consistent with a high probability of normal liver stiffness. 3. There is mild dilatation of the common bile duct, without choledocholith comment pancreatic head mass or intrahepatic biliary ductal dilatation noted. If clinically indicated, this could be further evaluated with MRI/MRCP or a nuclear HIDA scan. REFERENCE: Society of Radiologists in Ultrasound Liver Stiffness Thresholds (2020): LIVER STIFFNESS THRESHOLDS: *Liver Stiffness equal or less than 1.3 m/s: High probability of being normal. *Liver Stiffness less than 1.7 m/s: In the absence of other known clinical signs, rules out compensated advanced chronic liver disease. *Liver Stiffness 1.7-2.1 m/s: Suggestive of compensated advanced chronic liver disease but need further test for confirmation. *Liver Stiffness over 2.1 m/s: Rules in compensated advanced chronic liver disease. *Liver Stiffness over 2.4 m/s: Suggestive of clinically significant portal hypertension. QUALITY OF DATA SET: *IQR/Median value equal or less than 0.15 implies a quality data set. *IQR/Median value over 0.15 implies a poor quality data set. SIGNIFICANT CHANGE FROM PRIOR EXAM: Significant change if liver stiffness measurement is 10% or greater from prior exam. OTHER CONSIDERATIONS: The stage of liver fibrosis may be overestimated in the setting of acute hepatitis, liver inflammation, elevated liver function tests, hepatic vascular congestion, obstructive cholestasis, non-fasting state, and infiltrative diseases such as amyloidosis and lymphoma. In some patients with NAFLD, the liver stiffness thresholds for compensated advanced chronic liver disease may be lower. In causes other than viral hepatitis and NAFLD, liver stiffness thresholds are not well established.
== END 2023-10-01 07:57 | disposition home or self-care (01) ==
LOC: HO.US 07:56
PROVIDERS: PCP Internal Medicine; Visit Provider Surgery
DX: E66.01 Morbid (severe) obesity due to excess calories (principal); F32.A Depression, unspecified; J45.909 Unspecified asthma, uncomplicated
CPT/HCPCS: 76705; 76981